=== PATIENT | female | born 2000 | race Asian ===

== ENCOUNTER 2022-05-07 15:00 | Outpatient (CLI) | payer OTHER, SELFPAY ==
[2022-05-10 06:12] LABS: Sex Hormone Binding Globulin 53 nmol/L (25-122); Testosterone, Adult Male 215 ng/dL; Testosterone, Free Calculation 28 pg/mL; Testosterone, Percentage Free 1.3 %
== END 2022-05-07 15:01 | disposition home or self-care (01) ==
LOC: NFLDREF 15:01
PROVIDERS: Visit Provider Registered Nurse
DX: F64.9 Gender identity disorder, unspecified (principal)
CPT/HCPCS: 84270; 84402; 84403

== ENCOUNTER 2022-09-14 16:30 | Outpatient (CLI) | payer OTHER, SELFPAY ==
[2022-09-16 21:15] LABS: Sex Hormone Binding Globulin 31 nmol/L (25-122); Testosterone, Adult Male 319 ng/dL; Testosterone, Free Calculation 60 pg/mL; Testosterone, Percentage Free 1.9 %
== END 2022-09-14 16:31 | disposition home or self-care (01) ==
LOC: NFLDREF 16:31
PROVIDERS: PCP Registered Nurse; Visit Provider Registered Nurse
DX: F64.9 Gender identity disorder, unspecified (principal)
CPT/HCPCS: 84270; 84402; 84403

== ENCOUNTER 2023-09-06 17:33 | Outpatient (CLI) | payer OTHER, SELFPAY | END 2023-09-06 17:34 | disposition home or self-care (01) | LOC: NFLDREF 17:34 | PROVIDERS: PCP Registered Nurse; Visit Provider Registered Nurse | DX: F64.9 Gender identity disorder, unspecified (principal) | CPT/HCPCS: 84270; 84402; 84403 ==

== ENCOUNTER 2024-01-25 13:48 | Outpatient (CLI) | payer OTHER, SELFPAY | END 2024-01-25 13:49 | disposition home or self-care (01) | LOC: NFLDREF 13:48 | PROVIDERS: PCP Registered Nurse; Visit Provider Registered Nurse | DX: F64.9 Gender identity disorder, unspecified (principal) | CPT/HCPCS: 84270; 84402; 84403 ==